=== PATIENT | female | born 1970 | race Caucasian/White ===

== ENCOUNTER 2020-11-16 05:34 | Emergency (ER) | payer OTHER, SELFPAY ==
[2020-11-16] VITALS (10 sets, daily range): BP systolic 98–129; BP diastolic 55–80; PULSE 61–82; RESP 10–21; TEMP 36.6; O2SAT 93–100; BMI 36.5
--- NOTE | 2020-11-16 05:36 | DI.RAD.S_ITS ---
PROCEDURE: XR CHEST 1V INDICATIONS: Chest pain TECHNIQUE: One view of the chest was acquired. COMPARISON: None. FINDINGS: Surgical changes and devices: None. Lungs and pleura: Lungs are clear. No pleural effusions or pneumothorax. Mediastinum: Mediastinal contours appear normal. Heart size is normal. Bones and chest wall: No suspicious bony lesions. Overlying soft tissues appear unremarkable. IMPRESSION: Normal portable chest. Note: No significant discrepancy from the preliminary report. Dictated by: Curt Kapoor M.D. on 11/16/2020 at 7:13 Approved by: Curt Kapoor M.D. on 11/16/2020 at 7:14
--- NOTE | 2020-11-16 05:40 | ED_ITS ---
HPI - General Adult General Chief complaint: Chest Pain Stated complaint: Chest pain Time Seen by Provider: 11/16/20 05:35 Source: patient Mode of arrival: Ambulatory Limitations: no limitations History of Present Illness HPI narrative: Patient is an otherwise healthy 50-year-old female here for evaluation of left-sided chest pain. She states that she went to bed last night feeling fine and was woken up this morning approximately 1 hour prior to arrival here in the ER with left-sided chest discomfort. She states that it seems to come and go. It builds up in intensity and then relaxes and then completely res olves. States it feels like it is a muscle cramp. She is not having any problems breathing. No nausea vomiting. Has never had any pain like this in the past. Informed me that it was not worse with movement or taking a deep breath. No skin changes. Related Data Allergies Allergy/AdvReac Type Severity Reaction Status Date / Time Penicillins Allergy Rash Verified 11/16/20 05:43 Review of Systems Constitutional Constitutional: Denies fever(s) and Denies headache(s) ENT Ears, Nose, Mouth, and Throat: Denies headache(s) Cardiovascular Cardiovascular: Reports chest pain and Denies dyspnea Respiratory Respiratory: Denies cough and Denies dyspnea Gastrointestinal Gastrointestinal: Denies nausea and Denies vomiting Genitourinary Genitourinary: Denies dysuria Genitourinary: Denies dysuria Musculoskeletal Musculoskeletal: Denies arthralgias and Denies myalgias Integumentary/Breasts Skin/Breast: Denies rash Neurologic Neurologic: Denies behavioral changes and Denies headache(s) Psychiatric Psychiatric: Denies behavioral changes Hematologic/Lymphatic On Anticoagulants: No Allergic/Immunologic Allergic/Immunologic: Denies urticaria Patient History Medical History Patient denies medical problems Social History Smoking Status: Never smoker Exam Initial Vital Signs Initial Vital Signs: Vital Signs Temperature 97.9 F 11/16/20 05:35 Pulse Rate 82 11/16/20 05:35 Respiratory Rate 17 11/16/20 05:35 Blood Pressure 128/76 11/16/20 05:35 Pulse Oximetry 99 11/16/20 05:35 Const General: cooperative and comfortable Limitations: mental status not altered HENMT Head: normal to inspection and normocephalic Resp Effort & Inspection: normal respiratory effort Auscultation: clear to auscultation bilaterally Cardio Rate: regular rate Rhythm: regular rhythm GI Inspection: non-distended Skin Lesions: no lesions Rashes: no rashes Neuro General: patient alert and patient awake Cognition: normal cognition Speech: speech normal Extrem General: capillary refill normal Psych Appearance: grossly normal and well kempt Scores GCS [place] coma scale eye opening: Spontaneous [place] coma scale verbal response: Orientated [place] coma scale motor response: Obey commands [place] coma scale total score: 15 HEART Score Heart Score history: Slightly Suspicious Heart Score EKG: Non-Specific repolarization disturbance Heart Score Age: 45-64 years old Heart Score risk factors: No known risk factors Heart Score troponin: < or = to normal limit Heart Score Total: 2 Course Orders Ordered: ED Orders 11/16/20 05:36 XR chest 1V Stat 11/16/20 05:37 EKG-12 Lead Stat 11/16/20 05:45 Complete Blood Count AUTO DIFF Stat Comprehensive Metabolic Panel Stat Lipase Stat Troponin & CK Cardiac Panel Stat 11/16/20 07:45 Troponin & CK Cardiac Panel Stat Vital Signs Vital signs: Vital Signs - 8 hr 11/16/20 05:35 11/16/20 05:41 11/16/20 06:00 Temperature 97.9 F Pulse Rate 82 75 65 Respiratory Rate 17 14 Blood Pressure 128/76 98/59 L Pulse Oximetry 99 100 98 11/16/20 06:01 11/16/20 06:30 Temperature Pulse Rate 62 65 Respiratory Rate 16 10 L Blood Pressure 98/59 L 106/55 L Pulse Oximetry 97 93 Medical Decision Making Lab Data Lab results reviewed: Yes I reviewed the patient's lab results. Result diagrams: 11/16/20 05:45 11/16/20 05:45 Labs: Lab Results 11/16/20 11/16/20 Range/Units 05:45 05:45 WBC 15.1 H (4.5-11.0) X10^3/uL RBC 4.75 (4.0-5.2) X10^6/uL Hgb 13.8 (12.0-16.0) g/dL Hct 42.4 (36-46) % MCV 89.3 (80-100) fL MCH 29.1 (26-34) PG MCHC 32.6 (30-36) % RDW 13.4 (11.6-14.8) % Plt Count 293 (150-400) X10^3/uL Neut % (Auto) 66.8 (50-75) % Lymph % (Auto) 25.2 (25-40) % [place] % (Auto) 6.3 (3-14) % Eos % (Auto) 1.0 L (2-4) % Baso % (Auto) 0.7 (0-2) % Neut # (Auto) 13613 H (0335-0960) /uL Lymph # (Auto) 3800 (9352-9291) /uL [place] # (Auto) 1000 H (0-900) /uL Eos # (Auto) 200 (0-450) /uL Baso # (Auto) 100 (0-100) /uL Sodium 137 (137-145) mmol/L Potassium 3.4 (3.4-5.1) mmol/L Chloride 104 (98-107) mmol/L Carbon Dioxide 28 (22-32) mmol/L BUN 15 (7-17) mg/dL Creatinine 0.78 (0.52-1.04) mg/dL Estimated GFR > 60.0 (>60) mL/min BUN/Creatinine Ratio 19.2 (6-22) Glucose 106 H (70-100) mg/dL Calcium 8.7 (8.4-10.2) mg/dL Total Bilirubin 0.6 (0.2-1.3) mg/dL AST 24 (14-36) IU/L ALT 29 (<35) IU/L Alkaline Phosphatase 115 (38-126) U/L Total Creatine Kinase 34 (30-135) U/L CK-MB (CK-2) TNP CK-MB (CK-2) Rel Index TNP Troponin I < 0.012 (0.01-0.034) ng/mL Total Protein 6.8 (6.3-8.2) g/dL Albumin 3.8 (3.5-5.0) g/dL Globulin 3.0 (1.7-4.1) g/dL Albumin/Globulin Ratio 1.3 (1.0-2.8) Lipase 102 (23-300) U/L Imaging Data Chest x-ray: Radiologist's Impression: No active cardiopulmonary disease demonstrated ECG Data Attestation: I personally reviewed and interpreted this ECG as follows: Prior ECG tracings: not available for review Interpretation: Sinus rhythm Ventricular rate is 71 Normal axis Normal QRS Normal QTC Nonspecific ST T wave changes MDM Narrative Medical decision making narrative: Patient's chest x-ray is negative. Has nonspecific changes on her EKG. Has a low risk heart score. Initial troponin is negative. Has a leukocytosis however no other signs of infection. Patient agreeable to stay for 2nd troponin. Care turned over to Dr. Gorman to follow- up.
[2020-11-16 06:04] LABS: Add Manual Diff / Slide Review NO; Basophils Absolute Auto 100 /uL (0-100); Basophils Percent Auto 0.7 % (0-2); Eosinophils Absolute Auto 200 /uL (0-450); Hematocrit 42.4 % (36-46); Hemoglobin 13.8 g/dL (12.0-16.0); Lymphocytes Absolute Auto 3800 /uL (1100-4500); Lymphocytes Percent Auto 25.2 % (25-40); Mean Corpuscular HGB Conc 32.6 % (30-36); Mean Corpuscular Hemoglobin 29.1 PG (26-34); Mean Corpuscular Volume 89.3 fL (80-100); Monocytes Absolute Auto 1000 /uL (0-900); Monocytes Percent Auto 6.3 % (3-14); Neutrophils Absolute Auto 10100 /uL (1500-7000); Neutrophils Percent Auto 66.8 % (50-75); Platelet Count 293 X10^3/uL (150-400); Red Blood Cell Count 4.75 X10^6/uL (4.0-5.2); Red Cell Distribution Width 13.4 % (11.6-14.8); White Blood Cell Count 15.1 X10^3/uL (4.5-11.0)
[2020-11-16 06:19] LABS: Alanine Aminotransferase 29 IU/L (<35); Albumin 3.8 g/dL (3.5-5.0); Albumin Globulin Ratio 1.3 (1.0-2.8); Alkaline Phosphatase 115 U/L (38-126); Aspartate Aminotransferase 24 IU/L (14-36); BUN Creatinine Ratio 19.2 (6-22); Bilirubin Total 0.6 mg/dL (0.2-1.3); Blood Urea Nitrogen 15 mg/dL (7-17); Calcium 8.7 mg/dL (8.4-10.2); Carbon Dioxide 28 mmol/L (22-32); Chloride 104 mmol/L (98-107); Creatine Kinase 34 U/L (30-135); Estimated Glomerular Filt Rate > 60.0 mL/min (>60); Glucose 106 mg/dL (70-100); HEMOLYSIS < 15 (0-50); Lipase 102 U/L (23-300); Potassium 3.4 mmol/L (3.4-5.1); Sodium 137 mmol/L (137-145); Total Protein 6.8 g/dL (6.3-8.2)
[2020-11-16 06:31] LABS: Troponin I < 0.012 ng/mL (0.01-0.034)
[2020-11-16 07:58] LABS: Creatine Kinase 32 U/L (30-135)
[2020-11-16 08:11] LABS: Troponin I < 0.012 ng/mL (0.01-0.034)
--- NOTE | 2020-11-16 08:32 | ED_ITS ---
HPI - Chest Pain General Chief Complaint: Chest Pain Stated Complaint: Chest pain Time Seen by Provider: 11/16/20 05:35 Source: patient Mode of arrival: Ambulatory Limitations: no limitations Related Data Allergies Allergy/AdvReac Type Severity Reaction Status Date / Time Penicillins Allergy Rash Verified 11/16/20 05:43 Review of Systems Constitutional Constitutional: Denies headache(s) ENT Ears, Nose, Mouth, and Throat: Denies headache(s) Neurologic Neurologic: Denies behavioral changes and Denies headache(s) Psychiatric Psychiatric: Denies behavioral changes Patient History Medical History Patient denies medical problems Social History Smoking Status: Never smoker Smoking Status: Never smoker alcohol intake frequency: holidays/special occasions only Substance Use Type: does not use Exam Initial Vital Signs Initial Vital Signs: Vital Signs Temperature 97.9 F 11/16/20 05:35 Pulse Rate 82 11/16/20 05:35 Respiratory Rate 17 11/16/20 05:35 Blood Pressure 128/76 11/16/20 05:35 Pulse Oximetry 99 11/16/20 05:35 Course Orders Ordered: ED Orders 11/16/20 05:36 XR chest 1V Stat 11/16/20 05:37 EKG-12 Lead Stat 11/16/20 05:45 Complete Blood Count AUTO DIFF Stat Comprehensive Metabolic Panel Stat Lipase Stat Troponin & CK Cardiac Panel Stat 11/16/20 07:42 Troponin & CK Cardiac Panel Stat 11/16/20 08:29 EKG-12 Lead Stat Vital Signs Vital signs: Vital Signs - 8 hr 11/16/20 05:35 11/16/20 05:41 11/16/20 06:00 Temperature 97.9 F Pulse Rate 82 75 65 Respiratory Rate 17 14 Blood Pressure 128/76 98/59 L Pulse Oximetry 99 100 98 11/16/20 06:01 11/16/20 06:30 11/16/20 07:00 Temperature Pulse Rate 62 65 65 Respiratory Rate 16 10 L 15 Blood Pressure 98/59 L 106/55 L 116/69 Pulse Oximetry 97 93 94 11/16/20 07:30 Temperature Pulse Rate 64 Respiratory Rate 15 Blood Pressure 129/59 L Pulse Oximetry 98 MDM - Chest Pain Lab Data Result diagrams: 11/16/20 05:45 11/16/20 05:45 Labs: Lab Results 11/16/20 11/16/20 11/16/20 Range/Units 05:45 05:45 07:42 WBC 15.1 H (4.5-11.0) X10^3/uL RBC 4.75 (4.0-5.2) X10^6/uL Hgb 13.8 (12.0-16.0) g/dL Hct 42.4 (36-46) % MCV 89.3 (80-100) fL MCH 29.1 (26-34) PG MCHC 32.6 (30-36) % RDW 13.4 (11.6-14.8) % Plt Count 293 (150-400) X10^3/uL Neut % (Auto) 66.8 (50-75) % Lymph % (Auto) 25.2 (25-40) % [place] % (Auto) 6.3 (3-14) % Eos % (Auto) 1.0 L (2-4) % Baso % (Auto) 0.7 (0-2) % Neut # (Auto) 75437 H (7973-9043) /uL Lymph # (Auto) 3800 (8623-2604) /uL [place] # (Auto) 1000 H (0-900) /uL Eos # (Auto) 200 (0-450) /uL Baso # (Auto) 100 (0-100) /uL Sodium 137 (137-145) mmol/L Potassium 3.4 (3.4-5.1) mmol/L Chloride 104 (98-107) mmol/L Carbon Dioxide 28 (22-32) mmol/L BUN 15 (7-17) mg/dL Creatinine 0.78 (0.52-1.04) mg/dL Estimated GFR > 60.0 (>60) mL/min BUN/Creatinine Ratio 19.2 (6-22) Glucose 106 H (70-100) mg/dL Calcium 8.7 (8.4-10.2) mg/dL Total Bilirubin 0.6 (0.2-1.3) mg/dL AST 24 (14-36) IU/L ALT 29 (<35) IU/L Alkaline Phosphatase 115 (38-126) U/L Total Creatine Kinase 34 32 (30-135) U/L CK-MB (CK-2) TNP TNP CK-MB (CK-2) Rel Index TNP TNP Troponin I < 0.012 < 0.012 (0.01-0.034) ng/mL Total Protein 6.8 (6.3-8.2) g/dL Albumin 3.8 (3.5-5.0) g/dL Globulin 3.0 (1.7-4.1) g/dL Albumin/Globulin Ratio 1.3 (1.0-2.8) Lipase 102 (23-300) U/L Discharge Plan Departure Patient Disposition: Home Clinical Impression: Atypical chest pain Instructions: DI for Atypical Chest Pain Activity Restrictions/Additional Instructions: *You have been diagnosed with atypical chest pain *What to do: At this time blood work and EKG are overall reassuring. However you may require further cardiac testing such as a stress test and an echocardiogram with her primary care provider. *Continue to take medications as directed *Follow up with your primary care provider in 2-3 days *Return to ER if you should have worsening chest pain, shortness of breath, or any new, worsening or concerning symptoms [facility]errals: [facility] [Provider Group]
[2020-11-16] MEDS: ASPIRIN 81 MG CHEW TAB 324 MG (08:46)
== END 2020-11-16 08:52 | disposition home or self-care (01) ==
PROVIDERS: Emergency Medicine; Emergency Provider Emergency Medicine
DX: R07.89 Other chest pain (principal)
CPT/HCPCS: 36415; 71045; 80053; 82550; 83690; 84484; 85025; 93005; 93010; 99284